=== PATIENT | female | born 1965 | race Caucasian/White ===

== ENCOUNTER 2024-01-21 19:22 | Emergency (ER) | payer MEDICAID, OTHER ==
[~2024-01-21] VITALS: Ht 154.9 cm; Wt 59.9 kg
[~2024-01-21 19:22] MED LIST: CIPR500T5; DOCU-277
[2024-01-21 20:33] VITALS: BP 110/61; TEMP 98.1; O2SAT 99
[2024-01-21] MEDS ORDERED: SULF1TAB47 PO (20:40)
[2024-01-21] MEDS ORDERED: KETO10TA2 PO (20:40)
== END 2024-01-21 20:50 | disposition home or self-care (01) ==
LOC: ER 19:25
DX: M25.561 Pain in right knee (principal); K14.0 Glossitis; Z88.0 Allergy status to penicillin